=== PATIENT | female | born 1985 | race Caucasian/White ===

== ENCOUNTER 2022-04-20 04:02 | Outpatient (CLI) | payer MEDICAID, SELFPAY ==
[2022-04-20 12:29] LABS: Abs Immature Grans 0.01 10^3/uL (0.0-0.06); Absolute Basophil Count 0.07 10^3/uL (0.0-0.2); Absolute Eosinophil Count 0.31 10^3/uL (0.0-0.7); Absolute Lymphocyte Count 1.99 10^3/uL (1.2-3.4); Absolute Monocyte Count 0.53 10^3/uL (0.1-0.8); Absolute Neutrophil Count 3.48 10^3/uL (1.2-6.7); Basophils % 1.1; Eosinophils % 4.9; HCT 40.9 % (36.0-46.0); HGB 13.4 g/dL (11.2-15.7); Immature Grans % 0.2; Lymphocytes % 31.1; MCH 27.3 pg (27.0-33.0); MCHC 32.8 % (32.0-36.0); MCV 84 fL (80-95); MPV 10.4 fL (8.0-11.0); Monocytes % 8.3; Neutrophils % 54.4; Platelet Count 324 10^3/uL (130-400); RDW 13.2 % (11.7-14.6); RDW-SD 40.6 fL; WBC 6.39 10^3/uL (4.4-10.8)
[2022-04-20 12:34] LABS: Iron 94 ug/dL (50-170); Total Iron Binding Capacity 271 ug/dL (250-450); Transferrin Sat 35 % (15-50)
[2022-04-20 12:58] LABS: ALT 24 U/L (14-59); AST 20 U/L (15-37); Albumin 4.2 g/dL (3.4-5.0); Alkaline Phosphatase 44 U/L (46-116); Anion Gap 10.2 mmol/L (3-11); BUN 11 mg/dL (7-18); Bilirubin, Total 0.7 mg/dL (0.2-1.0); CO2 25.8 mmol/L (21.0-32.0); CREATININE 0.9 mg/dL (0.55-1.02); Calcium 9.3 mg/dL (8.5-10.1); Chloride 105 mmol/L (98-107); Estimated GFR 83.92 (mL/min/1.73m2); Ferritin 61 ng/mL (8-252); Folate 9.2 ng/mL (8.6-20.0); Glucose 92 mg/dL (74-106); Potassium 3.8 mmol/L (3.5-5.1); Sodium 141 mmol/L (136-145); Total Protein 7.7 g/dL (6.4-8.2); Vitamin B12 227 pg/mL (193-986)
== END 2022-04-20 04:03 | disposition home or self-care (01) ==
LOC: LOS 04:02
PROVIDERS: PCP Naturopath; Visit Provider Naturopath
DX: R53.83 Other fatigue (principal); Z86.39 Personal history of other endocrine, nutritional and metabolic disease
CPT/HCPCS: 36415; 80053; 82607; 82728; 82746; 83540; 83550; 85025

== ENCOUNTER → 2023-04-05 01:15 | Outpatient (CLI) | payer MEDICAID, SELFPAY ==
--- NOTE | 2023-04-05 | DI.RAD_ITS ---
Exam(s) XR SHOULDER LT COMPLETE 2+V EXAM: XR SHOULDER LT COMPLETE 2+V CLINICAL HISTORY: PAIN LEFT SHOULDER M25.512. TECHNIQUE: 2D digital imaging was performed of the left shoulder. Five images were obtained. AP, G rashey, Y-view and axillary views were obtained. COMPARISON: No exams were available for comparison FINDINGS: BONES: No acute fracture is present. No bony destructive lesion is seen. JOINTS: No dislocation present. The joint spaces are well maintained. SOFT TISSUE: Normal. IMPRESSION: Unremarkable radiographs of the left shoulder. DATA REPOSITORY: RADIATION DOSE DELIVERED:
--- NOTE | 2023-04-05 | DI.RAD_ITS ---
Exam(s) XR HUMERUS LT EXAM: XR HUMERUS LT CLINICAL HISTORY: PAIN LEFT ARM M79.602. TECHNIQUE: 2D digital imaging was performed of the left humerus. Two images were obtained. AP and lateral views were obtained. COMPARISON: No exams were available for comparison FINDINGS: BONES: No acute fracture is present. No bony destructive lesion is seen. Visualized portion of elbow and shoulder joints are unremarkable. SOFT TISSUE: Normal. IMPRESSION: Unremarkable radiographs of the left humerus. DATA REPOSITORY: RADIATION DOSE DELIVERED:
== END ==
PROVIDERS: PCP Naturopath; Visit Provider Naturopath
DX: M25.512 Pain in left shoulder (principal); M79.602 Pain in left arm
CPT/HCPCS: 73030; 73060

== ENCOUNTER 2025-06-09 15:49 | Emergency (ER) | payer MEDICAID, SELFPAY ==
[2025-06-09 15:53] VITALS: BP 134/81; PULSE 78; RESP 14; TEMP 36.7; O2SAT 99
[2025-06-09 16:24] LABS: Glucose Negative (Negative)
--- NOTE | 2025-06-09 17:22 | W.ED.GENAD ---
Discharge Plan Disposition Patient Disposition: Home Condition: Stable Discharge Details Clinical Impression: Diarrhea Primary Care Provider: Neto Tejada ED Provider: Simi Michaels Home Meds and New Rx's Prescriptions: No Action dextroamphetamine-amphetamine [Adderall] 30 mg tablet 30 mg PO DAILY lorazepam [Ativan] 1 mg tablet 1 mg PO QHS escitalopram oxalate [Lexapro] 5 mg tablet 5 mg PO DAILY Discharge Instructions Instructions: Diarrhea, Adult ED Additional Instructions: At this time your electrolytes are mostly within normal limits your potassium was slightly low at 3.3 normal is 3.5. You are given a potassium supplement here in the emergency department. Please increase your diet with high potassium rich foods such as bananas and spinach. Practice a BRAT diet which is bananas rice apples and toast over the next 2 to 3 days. You may also drink electrolyte drinks such as Gatorade or similar over the next 2 to 3 days while having the diarrhea. Please collect a stool sample and bring it in to the lab and have your primary care provider follow-up with these results. If you continue to have daily diarrhea you may also try an [id number] Imodium or similar. Follow up with primary care provider in 3-5 days. Return to ED sooner if any worsening fatigue, abdominal pain, worsening bleeding in your stool vomiting or concerns. Stand Alone Forms: Portal Information Referrals: Neto Tejada [Primary Care Provider, Medicine] - 1 week Referral Note: ER follow-up, call for appointment Clinical Impression: Diarrhea Discharge Data Discharge Date/Time-TO BE ENTERED AT DEPARTURE: 06/09/25 19:24 HPI General Mode of arrival: ambulatory. Date/Time Provider Initiated Documentation: 06/09/25 16:09. Limitations to Documentation: no limitations. Information obtained by: patient, RN notes reviewed and old records reviewed. HPI Narrative: 39-year-old female presents to the ER with a chief complaint of liquidy stools and diarrhea for the last 4 days or more. She also reports increased fatigue. Denies any significant abdominal pain but does endorse queasiness, endorses seeing some dark red blood in her stool over the last couple of days intermittently. Denies any vomiting, recent travel or sick contacts. She also reports passing gas and having incontinent of stool. Had a telehealth consult yesterday and was told to have some labs done and was referred to the urgent care and thus referred here. No other associated symptoms or complaints at this time. Not taking any medications prior to arrival. No antibiotics in the last few months. Related Data Home Medications Medication Instructions Recorded Confirmed dextroamphetamine-amphetamine 30 30 mg PO DAILY 06/09/25 06/09/25 mg tablet (Adderall) escitalopram oxalate 5 mg tablet 5 mg PO DAILY 06/09/25 06/09/25 (Lexapro) lorazepam 1 mg tablet (Ativan) 1 mg PO QHS 06/09/25 06/09/25 Allergies Allergy/AdvReac Type Severity Reaction Status Date / Time No Known Allergies Allergy Unverified 06/09/25 16:03 General Stated Complaint: Abd Prob IVAN: 3 Review of Systems All systems reviewed & are unremarkable except as noted in HPI and below Gastrointestinal Gastrointestinal: Reports excessive flatus, Reports fecal incontinence, Reports diarrhea and Reports loose stools Exam Narrative Exam Narrative: Constitutional: Alert and oriented x3. Appears stated age. Normal body habitus. Head: Normocephalic, no trauma. Eyes: Pupils PERRL, Red reflex noted, EOM's intact. Eyelids symmetrical without lesions, discharge, or swelling. ENT: Bilateral TM's WNL, External ear normal to inspection, no mastoid TTP, swelling, or erythema, Nasal turbinates WNL, no nasal discharge. Normal dentition, Posterior pharynx WNL, no exudate. Chest: RRR, Normal S1, S2, distal pulses intact. Resp: Lungs clear to auscultation bilaterally, no wheezes, rales, or rhonchi. Abdomen: Soft, non-distended, Normoactive bowel sounds all 4 quads. Musculoskeletal: Normal gait, Moves all 4 extremities without difficulty. Skin: No suspicious rashes or lesions. Capillary refill less than 2 sec. Neurologic: Cranial nerves II-XII intact. Alert and oriented x 3. Motor: No deficits noted. Sensory: Intact bilaterally all 4 extremities. Hematologic/Lymphatic: No ecchymosis, no lymphadenopathy. Course Vital Signs Vital signs: Vital Signs Temperature 36.7 C 06/09/25 15:53 Pulse 78 06/09/25 15:53 Respiratory Rate 14 06/09/25 15:53 Blood Pressure 134/81 06/09/25 15:53 Pulse Oximetry 99 06/09/25 15:53 Temperature 36.7 C 06/09/25 15:53 Temperature Source Oral 06/09/25 15:53 Pulse 78 06/09/25 15:53 Respiratory Rate 14 06/09/25 15:53 Blood Pressure 134/81 06/09/25 15:53 Pulse Oximetry 99 06/09/25 15:53 Oxygen Delivery Method Room Air 06/09/25 15:53 Oxygen Flow Rate 0 06/09/25 15:53 Pain Level 1 06/09/25 15:53 Lab/Test Results Lab/Test Results: Laboratory Tests Range/Units 06/09/25 16:10 Urine Color (Yellow) Yellow Urine Clarity (Clear) Clear Urine pH (5-8) 7.0 Ur Specific [place] (1.005-1.025) 1.010 Urine Protein (Neg-Trace) mg/dL Negative Urine Ketones (Negative) mg/dL Negative Urine Blood (Negative) Negative Urine Nitrite (Negative) Negative Urine Bilirubin (Negative) Negative Urine Urobilinogen (Up to 0.2) mg/dL 0.2 Ur Leukocyte Esterase (Negative) Negative Urine Glucose (Negative) mg/dL Negative POC- Test(urine) Negative Medical Decision Making 39-year-old female presents to the ER with a chief complaint of liquidy stools and diarrhea for the last 4 days or more. She also reports increased fatigue. Denies any significant abdominal pain but does endorse queasiness, endorses seeing some dark red blood in her stool over the last couple of days intermittently. Denies any vomiting, recent travel or sick contacts. She also reports passing gas and having incontinent of stool. Had a telehealth consult yesterday and was told to have some labs done and was referred to the urgent care and thus referred here. No other associated symptoms or complaints at this time. Not taking any medications prior to arrival. No antibiotics in the last few months. CBC CMP lipase urinalysis ordered. Liter of normal saline. No evidence of UTI on urinalysis. Will consider CT abdomen pelvis. No leukocytosis, no electrolyte abnormality, potassium slightly low at 3.3 sodium 141, the rest of the labs are within normal limits. No evidence of urinary tract infection. Will give home care instructions for diarrhea including BRAT diet, electrolyte oral replenishment, and Imodium if symptoms continue. Will have patient collect stool as an outpatient and bring into the lab and follow-up with primary care doctor. At this time imaging was deferred due to patient declining any abdominal pain. Patient does not appear toxic. No evidence for an acute abdomen at this time. This text was generated using Jarvamation system, please disregard any oddities of phrase or misspellings. Medical Records Medical records reviewed: Yes I reviewed the patient's medical records. Lab Data Lab results reviewed: Yes I reviewed the patient's lab results. Labs: Laboratory Tests Range/Units 06/09/25 06/09/25 16:10 17:50 WBC (4.4-10.8) 10^3/uL 7.62 RBC (3.93-5.22) 10^6/uL 4.83 Hgb (11.2-15.7) g/dL 12.8 Hct (36.0-46.0) % 39.2 MCV (80-95) fL 81 MCH (27.0-33.0) pg 26.5 L MCHC (32.0-36.0) % 32.7 RDW (11.7-14.6) % 12.4 Plt Count (130-400) 10^3/uL 295 MPV (8.0-11.0) fL 9.3 Immature Gran % % 0.3 Neutrophils % % 49.3 Lymphocytes % % 36.2 Monocytes % % 7.7 Eosinophils % % 5.8 Basophils % % 0.7 Nucleated RBC % (0.0-0.3) % 0.0 Absolute Neutrophils (1.2-6.7) 10^3/uL 3.76 Absolute Lymphocytes (1.2-3.4) 10^3/uL 2.76 Absolute Monocytes (0.1-0.8) 10^3/uL 0.59 Absolute Eosinophils (0.0-0.7) 10^3/uL 0.44 Absolute Basophils (0.0-0.2) 10^3/uL 0.05 Sodium (136-145) mmol/L 141 Potassium (3.5-5.1) mmol/L 3.3 L Chloride (98-107) mmol/L 104 Carbon Dioxide (21.0-32.0) mmol/L 29.2 Anion Gap (3-11) mmol/L 7.8 BUN (7-18) mg/dL 7 Creatinine (0.55-1.02) mg/dL 0.8 Est GFR (CKD-EPI 2020) (mL/min/1.73m2) 94.87 Glucose (74-106) mg/dL 93 Calcium (8.5-10.1) mg/dL 8.7 Magnesium (1.8-2.4) mg/dL 2.2 Total Bilirubin (0.2-1.0) mg/dL 0.5 AST (15-37) U/L 29 ALT (14-59) U/L 28 Alkaline Phosphatase (46-116) U/L 58 Total Protein (6.4-8.2) g/dL 7.3 Albumin (3.4-5.0) g/dL 3.9 Serum HCG, Qual Negative Urine Color (Yellow) Yellow Urine Clarity (Clear) Clear Urine pH (5-8) 7.0 Ur Specific [place] (1.005-1.025) 1.010 Urine Protein (Neg-Trace) mg/dL Negative Urine Ketones (Negative) mg/dL Negative Urine Blood (Negative) Negative Urine Nitrite (Negative) Negative Urine Bilirubin (Negative) Negative Urine Urobilinogen (Up to 0.2) mg/dL 0.2 Ur Leukocyte Esterase (Negative) Negative Urine Glucose (Negative) mg/dL Negative PFSH All Active Problems (Updated 06/09/25 @ 18:25 by Simi Michaels NP) Diarrhea (Acute) Social History Smoking/Tobacco Use Status: Former Tobacco Use Smoking risk assessment performed?: Yes Alcohol Intake: current Alcohol type: beer and wine Substance use type: does not use Do you feel safe at home: Yes Do you feel safe in your relationship?: Yes PAWSS Have you Been Recently Intoxicated or Drunk Within the Last 30 days?: Yes Have you Ever Experienced Previous Episodes of Alcohol Withdrawal?: No Have you ever Experienced Withdrawal Seizures?: No Have you ever Experienced Delirium Tremens(DT)s?: No Have you ever undergone Alcohol Rehabilitation Treatment (i.e, inpt ot outpatient treatment programs)?: No Have you ever Experienced Blackouts?: No Have you ever Combined Alcohol with other Downers within the last 90 days?: No Have you ever Combined Alcohol with any other Substance of Abuse during the last 90 days?: No Positive Blood Alcohol level on Presentation? [PCS.BAL]: No Evidence of Increased Autonomic Activity (i.e. HR>120, tremor, sweating, agitation, nausea)?: No Result: 1
[2025-06-09] MEDS: Normal Saline 1,000 ML 1000 ML IV (17:55)
[2025-06-09 17:58] LABS: Abs Immature Grans 0.02 10^3/uL (0.0-0.06); HCT 39.2 % (36.0-46.0); HGB 12.8 g/dL (11.2-15.7); Immature Grans % 0.3 %; MCH 26.5 pg (27.0-33.0); MCHC 32.7 % (32.0-36.0); MCV 81 fL (80-95); MPV 9.3 fL (8.0-11.0); Platelet Count 295 10^3/uL (130-400); RBC 4.83 10^6/uL (3.93-5.22); RDW 12.4 % (11.7-14.6); RDW-SD 36.7 fL; WBC 7.62 10^3/uL (4.4-10.8)
[2025-06-09 18:14] LABS: ALT 28 U/L (14-59); AST 29 U/L (15-37); Albumin 3.9 g/dL (3.4-5.0); Alkaline Phosphatase 58 U/L (46-116); Anion Gap 7.8 mmol/L (3-11); BUN 7 mg/dL (7-18); Bilirubin, Total 0.5 mg/dL (0.2-1.0); CO2 29.2 mmol/L (21.0-32.0); Calcium 8.7 mg/dL (8.5-10.1); Chloride 104 mmol/L (98-107); Glucose 93 mg/dL (74-106); Magnesium 2.2 mg/dL (1.8-2.4); Potassium 3.3 mmol/L (3.5-5.1); Sodium 141 mmol/L (136-145); Total Protein 7.3 g/dL (6.4-8.2)
[2025-06-09 18:18] LABS: HCG Qual (Serum) Negative
[2025-06-09 18:26] LABS: Lipase 39 U/L (<78)
[2025-06-09] MEDS: Potassium Chloride 20 MEQ TABCR PO (18:52)
[2025-06-09 19:19] VITALS: PULSE 72; RESP 16; O2SAT 100
--- NOTE | 2025-06-10 13:24 | NUR.NOTE ---
Nursing Note: The patient dropped off her stool samples in the lab today but forgot the orders to go with it. I was asked by Dariusz in the lab to see if we could figure out what was ordered and there is nothing specific other than stool studies. I asked that Dariusz call the patient and have her give us a call back when she gets home to read off what was ordered and then we could get the provider to sign another order for the patient. Dariusz also said that the patient was going to attempt to fax or email the order to her when she gets home. The patient is not feeling well and lives over an hour away, so she was really hoping that she would not have to come back with the order.
== END 2025-06-09 19:24 | disposition home or self-care (01) ==
PROVIDERS: Emergency Medicine; Emergency Provider Registered Nurse Emergency; PCP Naturopath
DX: R19.7 Diarrhea, unspecified (principal); R11.0 Nausea
CPT/HCPCS: 36415; 80053; 81025; 83690; 96360; 99284; 81003; 83735; 84703; 85025; 99283

== ENCOUNTER 2025-06-10 18:08 | Outpatient (REF) | payer MEDICAID, SELFPAY ==
[2025-06-10 18:19] LABS: EPI 027-NAP1-B1 PRESUMPTIVE NEGATIVE
[2025-06-11 20:09] LABS: Campylobacter PCR Negative (Negative); Shiga Toxin PCR Negative (Negative); Shigella/Enteroinvasive Ecoli Negative (Negative)
== END 2025-06-10 18:09 | disposition home or self-care (01) ==
LOC: LBN 18:08
PROVIDERS: PCP Naturopath; Visit Provider Registered Nurse Emergency
DX: R19.7 Diarrhea, unspecified (principal)
CPT/HCPCS: 87015; 87269; 87272; 87505; 82274

== ENCOUNTER → 2025-07-15 00:07 | Outpatient (CLI) | payer MEDICAID, SELFPAY ==
--- NOTE | 2025-07-15 | DI.MRI_ITS ---
Exam(s) MR UPPER JOINT LT WO EXAM: MR UPPER JOINT LT WO CLINICAL HISTORY: PAIN LT SHOULDER, M25.512. TECHNIQUE: Multiplanar multisequence MRI was performed. COMPARISON: Plain films 05 April 2023 FINDINGS: BONES: There is no fracture or contusion pattern. Minimal degenerative cysts in the superior humeral head. JOINTS:The acromioclavicular joint is normal. The glenohumeral joint is normal. TENDONS: Supraspinatus: Area of high signal in the distal anterior supraspinatus tendon consistent with tendinosis versus partial tear. There is also high signal in the proximal long head of the biceps tendon consistent with tendinosis or partial tear. Infraspinatus: Unremarkable. Subscapularis: Unremarkable. Teres [place]: Unremarkable. Biceps and [place]: Unremarkable. MUSCLES: Unremarkable. GLENOID LABRUM: Unremarkable on this noncontrast examination. SOFT TISSUES: Unremarkable. BURSAE: Subacromial and subdeltoid bursae shows a minimal amount of fluid.. IMPRESSION: Tendinosis versus partial tear is involving the anterior supraspinatus tendon and adjacent portion of the long head of the biceps tendon. DATA REPOSITORY:
== END ==
LOC: DI 00:08
PROVIDERS: PCP Naturopath; Visit Provider Naturopath
DX: M75.82 Other shoulder lesions, left shoulder (principal)
CPT/HCPCS: 73221